=== PATIENT | female | born 1990 | race African-American/Black ===

== ENCOUNTER 2024-06-21 23:46 | Emergency (ER) | payer BC, SELFPAY ==
[2024-06-22] VITALS (8 sets, daily range): BP systolic 124–171; BP diastolic 59–106
[2024-06-22] MEDS: NSS 500 IV (01:45)
[2024-06-22] MEDS: TORADOL 30 MG IV (01:45)
--- NOTE | 2024-06-22 02:00 | ED.GENMED ---
History of Present Illness
General
Chief Complaint: Headache
Source: patient
Exam Limitations: none
Time Seen by Provider: 06/22/24 00:55
Nursing documentation reviewed up to this point in time: agreed with
History of Present Illness
History of Present Illness:
Patient to ED [facility] complaint of elevated BP and headache. SHe has a history of hypertension. Was taking Labatolol 100mg BID until last week when she said her dose was decreased to 100mg daily. SHe prefers to take med in the evening and reports
compliance with dosing. She also reports frequent headaches in the past. SHe has an MRI scheduled next week. States she noticed today that her BP was consistently elevated along with having a headache. Brought self to ED for eval.
Past History
Past History
ED Past Medical History: Other ( preeclampsia 2018) and Other (Seasonal allergies)
ED Past Surgical History: (X2)
Patient has exhibited threatening behavior?: No
PSI?: No
Social History
Tobacco: Non-smoker
Alcohol: None
Drug: None
Personal:
Living: with family
Employment: Employed
Family History
Family History: Other (Noncontributory)
Review of Systems
Review of Systems
Allergies reviewed?: Yes
All Other Systems: ROS reviewed and negative except as documented in HPI and ROS
Constitutional: Reports no symptoms
EENT: Reports no symptoms
Respiratory: Reports no symptoms
Cardiac: Reports other (elevated BP readings)
ABD/GI: Reports no symptoms
: Reports no symptoms
Musculoskeletal: Reports no symptoms
Skin: Reports no symptoms
Neurological: Reports headache
Psychiatric: Reports no symptoms
Phy Exam
General Physical Exam
General Presentation: well appearing and no apparent distress
General age: appears stated age
General Skin: warm and dry
General Habitus: normal
General Mental: alert
General Hydration: appears well hydrated
Cardiovascular Exam
Cardiovascular Exam: regular rate/rhythm and no edema
Pulmonary Exam
Pulmonary Exam: lungs clear and no respiratory distress
Musculoskeletal Exam
Musculoskeletal Exam: full ROM and neuro vasc intact
Skin Exam
Skin Exam: normal color, warm/dry and no rash
Psychiatric Exam
Psychiatric Exam: normal mood/affect
Course
Orders/Labs/Results
Orders:
Orders
06/22/24 00:10
EKG [Electrocardiogram (*1)] Urgent
Reason for Study: Hypertension, Benign
EKG- Treatment ONCE
06/22/24 01:14
Ketorolac [Toradol] 30 mg IV NOW STA
06/22/24 01:15
0.9% Sodium Chloride 500 ml [Nss] 500 ml IV BOLUS
06/22/24 01:16
Test Result ONCE
06/22/24 01:53
CBC/With Diff [Complete Blood Count/With Diff] Urgent
06/22/24 01:57
HydrALAZINE [Apresoline] 10 mg IV NOW STA
06/22/24 02:23
Comprehensive Metabolic Panel Urgent
Comment: REDRAW
HCG, Serum Qualitative Screen Urgent
Abnormal Lab Results
06/22/24
01:53
RBC 3.20 L 10^6/uL
(4.20-5.40)
Hgb 9.9 L g/dL
(12.0-16.0)
Hct 28.7 L %
(37.0-47.0)
06/22/24 01:53
06/22/24 02:23
Vital Signs
Initial and Last Documented VS:
Initial Vital Signs
Temp Pulse Resp BP Pulse Ox
97.8 F 60 18 155/106 100
06/22/24 00:03 06/22/24 00:03 06/22/24 00:03 06/22/24 00:03 06/22/24 00:03
Last Documented Vital Signs
Temp Pulse Resp BP Pulse Ox
97.8 F 69 19 124/59 100
06/22/24 00:03 06/22/24 03:15 06/22/24 03:15 06/22/24 03:00 06/22/24 03:15
*EKG
Interpretation: normal
Rate: normal
Rhythm: sinus
*Critical Care Note
Total Time (30-74mins, 75-104mins- exclusive of procedures): Not Applicable
ED Attending Note
-
Portions of this chart may have been created with voice recognition software.� Occasional wrong word or��sound alike� substitutions may have occurred due to the inherent limitations of voice recognition software.
Discharge Plan
Departure
Patient Disposition: Home (Routine Discharge)
Patient with high blood pressure during this ER visit?: No
Condition: Good
Covid-19: Not Applicable
Discharge Problem:
Hypertension, Headache
Instructions: Headache, Adult (DC), BLOOD PRESSURE
Prescriptions:
No Action
cetirizine [Zyrtec] 10 MG tablet
10 mg PO DAILY@1200
[facility] [] 1 EACH tablet
1 ea PO DAILY
acetaminophen 325 MG tablet
650 mg PO Q4HPRN PRN (Reason: mild pain) 0RF
ibuprofen 600 MG tablet
600 mg PO Q4HPRN PRN (Reason: cramps) 0RF
labetalol 200 MG tablet
200 mg PO BID Qty: 60 0RF
Referrals:
Lorena Valera, DO [Family Provider] -
Stand Alone Forms: Return to Work
Activity Restrictions/Additional Instructions:
Resume the Labetolol twice daily. Follow up with your family doctor in AM. Return to the emergency department immediately for any changes in/worsening of your symptoms.
Interventions
Interventions:
*Risk Screen - Suicide Last Done: 06/22/24 00:03
*General Assessment Last Done: 06/22/24 00:03
*Neglect/Abuse Screening Last Done: 06/22/24 00:03
ED- Fall Risk Assessment Last Done: 06/22/24 03:31
*Nursing Disposition Last Done: 06/22/24 03:31
ED- Neurological Assessment Last Done: 06/22/24 02:00
Discharge Date and Time
Discharge Date/Time: 06/22/24 03:32
Print Language: SWEDISH
[2024-06-22] MEDS: APRESOLINE 10 MG IV (02:03)
[2024-06-22 02:08] LABS: % Basophils 0.3 % (0-2); % Immature Granulocytes 0.2 % (0-0.5); % Lymphocytes 46.7 % (20.5-51.1); % Monocytes 7.3 % (1.7-9.3); % Neutrophils 42.5 % (42.2-75.2); Absolute Eosinophils 0.2 10^3/uL (0-0.7); Absolute Lymphocytes 2.9 10^3/uL (1.2-3.4); Absolute Monocytes 0.5 10^3/uL (0.1-0.6); Absolute Neutrophils 2.7 10^3/uL (1.4-6.5); Hematocrit 28.7 % (37.0-47.0); Hemoglobin 9.9 g/dL (12.0-16.0); Mean Corp Hgb Conc. 34.5 g/dL (33.0-37.0); Mean Corpuscular Hgb 30.9 pg (27.0-31.0); Mean Corpuscular Volume 89.7 fL (81.0-99.0); Mean Platelet Volume 9.7 fL (7.4-10.4); Nucleated Red Blood Cells % 0 %; Platelet Count 345 10^3/uL (130-400); Red Cell Dist. Width 13.1 % (11.5-14.5); White Blood Cell Count 6.3 10^3/uL (4.8-10.8)
[2024-06-22 02:47] LABS: HCG, Serum Qualitative Screen Negative
[2024-06-22 02:50] LABS: ALT (SGPT) 16 U/L (0-35); AST (SGOT) 24 U/L (14-36); Albumin 4.1 g/dl (3.5-5.0); Alkaline Phosphatase 56 U/L (38-126); Blood Urea Nitrogen 13 mg/dl (7-17); Calcium 8.9 mg/dl (8.4-10.2); Carbon Dioxide 23 mmol/L (22-30); Chloride 107 mmol/L (98-107); Estimated Creatinine Clearance 84 ml/min; Glucose 89 mg/dl (70-99); Sodium 142 mmol/L (135-145); Total Bilirubin 0.3 mg/dl (0.2-1.3); Total Protein 6.7 g/dl (6.3-8.2); eGFR > 60.00
== END 2024-06-22 03:32 | disposition home or self-care (01) ==
LOC: EMR 23:46
PROVIDERS: Emergency Medicine; EMERGENCY PHYSICIAN Emergency Medicine; FAMILY PHYSICIAN Family Medicine
DX: I10 Essential (primary) hypertension (principal); R51.9 Headache, unspecified
CPT/HCPCS: 99283; 96374; 96375; 96361; 80053; 84703; 85025; 93005